=== PATIENT | female | born 1975 | race African-American/Black ===

== ENCOUNTER 2016-05-01 17:38 | Emergency (ER) | payer MEDICARE, OTHER ==
--- NOTE | 2016-05-01 18:06 | ED Physician Documentation ---
General Adult - HISTORIAN Historian: patient - HPI Stated Complaint: cough, nasal congestion, left ear pain, and sore throat Chief Complaint: Cough/ Upper Respiratory Onset: days ago (3) Timing: still present Modifying Factors: has been taking mucinex without improvement Further Comments: yes - ROS CONST: fever (felt hot), chills EYES/ENT: sore throat, nasal drainage, nasal congestion CVS/RESP: cough GI/: denies: vomiting, nausea, diarrhea - PAST HX Past History: other (seizure disorder, last one was 1 yr ago) Other History: other (boarderline diabetic) Surgeries/Procedures: BTL Immunizations: referred to PCP Allergies/Adverse Reactions: Allergies Allergy/AdvReac Type Severity Reaction Status Date / Time No Known Allergies Allergy Verified 05/01/16 18:01 Home Medications: Ambulatory Orders Medication Instructions Recorded Levetiracetam [Keppra] 1,500 mg PO BID 06/29/15 Multivitamin/Ferrous Sulfate 18 mg PO D 09/25/15 [One-Daily Xqhvm-Som-Dqtd Tab] Atorvastatin Calcium 20 mg PO HS 11/25/15 Levonorgestrel [Mirena] 1 each IY 1T 11/25/15 Azithromycin [Zithromax] 250 mg PO QD #6 tablet 05/01/16 Losartan Potassium [Cozaar] 50 mg PO DAILY 05/01/16 - SOCIAL HX Smoking History: non-smoker Alcohol Use: rarely Drug Use: none - FAMILY HX Family History: Yes - VITAL SIGNS Vital Signs: Vital Signs Temp Pulse Resp BP Pulse Ox 98.4 F 78 16 124/87 97 05/01/16 17:43 05/01/16 17:43 05/01/16 17:43 05/01/16 17:43 05/01/16 17:43 - REVIEWED ASSESSMENTS Nursing Assessment Reviewed: Yes Vitals Reviewed: Yes General Adult Physical Exam - PHYSICAL EXAM GENERAL APPEARANCE: no distress EENT: eye inspection normal, no signs of dehydration, pharyngeal erythema (mild) NECK: normal inspection, lymphadenopathy (mild tenderness) RESPIRATORY: no resp distress, chest non-tender, rhonchi. No: wheezes, rales CVS: reg rate & rhythm, heart sounds normal ABDOMEN: normal bowel sounds BACK: normal inspection SKIN: warm/dry EXTREMITIES: non-tender, normal range of motion NEURO: oriented X3, mood/affect nml, cognition normal Discharge Clincal Impression: Bronchitis Additional Instructions: Drink a lot of fluids, use some saline nasal spray to help with the nasal congestion, continue with mucinex for pulmonary congestion. Take Azithromycin as directed. If your breathing gets worse to follow-up wit your primary care provider or return to the ED. Home Medications: Ambulatory Orders Levetiracetam [Keppra] 1,500 mg PO BID 06/29/15 Multivitamin/Ferrous Sulfate [One-Daily Zgrsj-Fvw-Aava Tab] 18 mg PO D 09/25/15 Atorvastatin Calcium 20 mg PO HS 11/25/15 Levonorgestrel [Mirena] 1 each IY 1T 11/25/15 Azithromycin [Zithromax] 250 mg PO QD #6 tablet 05/01/16 Losartan Potassium [Cozaar] 50 mg PO DAILY 05/01/16 Decision to Admit: NO Date of Decison to Admit: 05/01/16 Decision Time: 18:19
[2016-05-01 19:01] VITALS: BP 148/70
== END 2016-05-01 18:30 ==
LOC: ED 17:38
DX: J20.9 Acute bronchitis, unspecified (principal)
CPT/HCPCS: 87070; 87880; 99282; 99283

== ENCOUNTER 2016-05-13 09:59 | Emergency (ER) | payer MEDICARE, OTHER ==
[2016-05-13 10:17] VITALS: BP 114/59
--- NOTE | 2016-05-13 10:47 | ED Physician Documentation ---
General Adult - HISTORIAN Historian: patient - HPI Stated Complaint: cough, congestion Chief Complaint: General Adult Onset: days ago Timing: still present Severity: moderate Further Comments: yes (Pt ois a 40 yo female who was seen here 05/01/16 and tx'd with Azithromycin for bronchitis. Pt states that she seemed to be getting better, but then got worse and now has facial pain, and a cough that keeps her awake at night. Pt has had chills, malaise.) - ROS CONST: chills, other (malaise) EYES/ENT: sore throat (2nd to coughing) CVS/RESP: cough GI/: none MS/SKIN/LYMPH: none NEURO/PSYCH: headache (mild) - PAST HX Past History: hypertension, other (HLD, seizures) Surgeries/Procedures: BTL Allergies/Adverse Reactions: Allergies Allergy/AdvReac Type Severity Reaction Status Date / Time No Known Allergies Allergy Verified 05/13/16 10:10 Home Medications: Ambulatory Orders Medication Instructions Recorded Levetiracetam [Keppra] 1,500 mg PO BID 06/29/15 Multivitamin/Ferrous Sulfate 18 mg PO D 09/25/15 [One-Daily Bcgdc-Eol-Bybt Tab] Atorvastatin Calcium 20 mg PO HS 11/25/15 Levonorgestrel [Mirena] 1 each IY 1T 11/25/15 Losartan Potassium [Cozaar] 50 mg PO DAILY 05/01/16 - SOCIAL HX Smoking History: quit greater than 1 year - FAMILY HX Family History: No - VITAL SIGNS Vital Signs: Vital Signs Temp Pulse Resp BP Pulse Ox 99.3 F 84 19 114/59 97 05/13/16 10:11 05/13/16 10:11 05/13/16 10:11 05/13/16 10:11 05/13/16 10:11 - REVIEWED ASSESSMENTS Nursing Assessment Reviewed: Yes Vitals Reviewed: Yes Progress - Progress Progress: Rapid strep - neg Influenza A - Pos Influenza B - neg Rx Tamiflu 75 mg po bid x 5 days Rx Robitussin AC 10 ml po q 4-6h prn, Disp:250 cc. Push fluids. ED Results Lab/Radiology - Orders Orders: ED Orders Category Date Time Status GRP A STREP SCREEN Stat Lab 05/13/16 Ordered INFLUENZA A&B Stat Lab 05/13/16 10:23 Ordered General Adult Physical Exam - PHYSICAL EXAM GENERAL APPEARANCE: mild distress EENT: eye inspection normal, ENT inspection normal, pharynx normal NECK: normal inspection, supple RESPIRATORY: no resp distress, chest non-tender, breath sounds normal, other ( cough) CVS: reg rate & rhythm, heart sounds normal ABDOMEN: soft, no organomegaly, normal bowel sounds BACK: normal inspection, no CVA tenderness SKIN: warm/dry, normal color EXTREMITIES: non-tender, normal range of motion, no evidence of injury NEURO: oriented X3, motor nml, sensation nml Discharge Clincal Impression: Influenza A Referrals: Primary Doctor,No [Primary Care Provider] - Home Medications: Ambulatory Orders Levetiracetam [Keppra] 1,500 mg PO BID 06/29/15 Multivitamin/Ferrous Sulfate [One-Daily Fkrjo-Jka-Rykp Tab] 18 mg PO D 09/25/15 Atorvastatin Calcium 20 mg PO HS 11/25/15 Levonorgestrel [Mirena] 1 each IY 1T 11/25/15 Losartan Potassium [Cozaar] 50 mg PO DAILY 05/01/16 Condition: Good Disposition: 01 HOME, SELF-CARE Decision to Admit: NO Decision Time: 10:52
== END 2016-05-13 10:51 | disposition home or self-care (01) ==
LOC: ED 09:59
DX: J11.1 Influenza due to unidentified influenza virus with other respiratory manifestations (principal)
CPT/HCPCS: 87070; 87400; 87880; 99283

== ENCOUNTER 2016-10-19 14:03 | Emergency (ER) | payer MEDICARE, OTHER ==
--- NOTE | 2016-10-19 14:20 | ED Physician Documentation ---
Nausea/Vomiting/Diarrhea - HISTORIAN Historian: patient - HPI Chief Complaint: Nausea,Vomiting,Diarrhea Onset: days ago (3 days) Duration: constant Last known Well Code/Unknown Code: Known Timing: still present Context: denies: out of country travel, bad food Severity: mild Further Comments: yes (patient states she is been having some nausea vomiting and diarrhea over the last three days. Patient does have a history of seizure disorder. Patient states that she get dehydrated sure tend to be more likely to have a seizure. Patient is concerned that she may be started to get dehydrated' s. Patient states that she is had recourse dominant today. Patient denies any medication melena her hematemesis. Patient has had some slight bright red blood with wiping related to her hemorrhoids. Patient is not had any vomiting today. Patient has been slightly nauseated. Patient has had decrease oral intake. Patient is still having adequate urinary output. Patient denies any lightheaded or dizzy spells or orthotic symptoms.) - Associated Symptoms Vomiting: mild Diarrhea: watery, bloody (hemorhoids with wiping) Abdominal Pain: cramping - ROS CONST: chills. denies: fever MS/SKIN/LYMPH: denies: joint pain, leg swelling NEURO/PSYCH: other (seizure disorder, last seizure was one year ago.) - PAST HX Past History: other (siezure disorder, HTN) Surgeries/Procedures: BLT Allergies/Adverse Reactions: Allergies Allergy/AdvReac Type Severity Reaction Status Date / Time No Known Allergies Allergy Verified 10/19/16 14:42 Home Medications: Ambulatory Orders Medication Instructions Recorded Levetiracetam [Keppra] 1,500 mg PO BID 06/29/15 Multivitamin/Ferrous Sulfate 18 mg PO D 09/25/15 [One-Daily Ghdty-Crh-Sbky Tab] Atorvastatin Calcium 20 mg PO HS 11/25/15 Levonorgestrel [Mirena] 1 each IY 1T 11/25/15 Losartan Potassium [Cozaar] 50 mg PO DAILY 05/01/16 - SOCIAL HX Smoking History: non-smoker Alcohol Use: rarely (wine) Drug Use: none - FAMILY HX Family History: diabetes (H), other (HTN) - VITAL SIGNS Vital Signs: Vital Signs Temp Pulse Resp BP Pulse Ox 73 20 135/69 99 10/19/16 16:45 10/19/16 16:45 10/19/16 16:45 10/19/16 16:45 - REVIEWED ASSESSMENTS Nursing Assessment Reviewed: Yes Vitals Reviewed: Yes ED Results Lab/Radiology - Lab Results Lab Results: Lab Results 10/19/16 10/19/16 15:05 15:05 WBC 8.80 K/ul K/ul (4.00-12.00) RBC 4.34 M/ul M/ul (3.90-5.20) Hgb 13.9 g/dL g/dL (12.0-16.0) Hct 40.4 % % (34.5-46.5) MCV 93.1 fl fl (80.0-100.0) MCH 32.0 pg pg (28.0-34.0) MCHC 34.4 g/dL g/dL (30.0-36.0) RDW 12.9 % % (11.3-14.3) Plt Count 241 K/mm3 K/mm3 (130-400) Neut % (Auto) 83.3 % H % (39.0-79.0) Lymph % (Auto) 10.9 % L % (16.0-50.0) [place] % (Auto) 2.7 % % (0.0-11.0) Eos % (Auto) 2.4 % % (0.0-6.8) Baso % (Auto) 0.3 (0.0-1.5) Neut # (Auto) 7.3 # k/uL # k/uL (1.4-7.7) Lymph # (Auto) 1.0 # k/uL # k/uL (0.6-4.0) [place] # (Auto) 0.2 # k/uL # k/uL (0.0-0.9) Eos # (Auto) 0.2 # k/uL # k/uL (0.0-0.6) Baso # (Auto) 0.0 # k/uL # k/uL (0.0-0.5) Reactive Lymphs % 0.4 % % (0.0-5.0) Reactive Lymphs # 0.0 # k/uL # k/uL (0.0-0.8) Sodium 136 mmol/L mmol/L (136-145) Potassium 3.9 mmol/L mmol/L (3.5-5.0) Chloride 100 mmol/L mmol/L (98-110) Carbon Dioxide 28 mmol/L mmol/L (20-32) BUN 12 mg/dL mg/dL (10-26) Creatinine 0.6 mg/dL mg/dL (0.4-1.5) Estimated Creat Clear 225 Est GFR ( Amer) > 60 (60 - ) Est GFR (Non-Af Amer) > 60 (60 - ) Glucose 125 mg/dL H mg/dL (70-99) Calcium 10.1 mg/dL mg/dL (8.5-10.5) Total Bilirubin 0.9 mg/dL mg/dL (0.2-1.2) AST 22 U/L U/L (0-41) ALT 28 U/L U/L (0-45) Alkaline Phosphatase 106 U/L U/L (46-116) Total Protein 8.4 g/dL g/dL (6.0-8.5) Albumin 5.0 g/dL g/dL (3.0-5.5) - Orders Orders: ED Orders Category Date Time Status Place IV Lock 1T Care 10/19/16 14:25 Active CBC/PLATELET/DIFF Routine Lab 10/19/16 15:05 Completed CMP Routine Lab 10/19/16 15:05 Completed LEVETIRACETAM(KEPPRA) LEVEL Routine Lab 10/19/16 15:05 Received 0.9 % Sodium Chloride [Normal Saline] 1,000 ml Med 10/19/16 14:30 Discontinued IV .Q1H 0.9 % Sodium Chloride [Normal Saline] 1,000 ml Med 10/19/16 14:46 Discontinued IV .STK-MED Nausea Physical Exam - EXAM General Appearance: no acute distress, alert Neck: normal inspection, thyroid normal, supple. No: lymphadenopathy Respiratory: no resp distress, chest non-tender, breath sounds normal. No: wheezes, rales, rhonchi CVS: reg rate & rhythm, heart sounds normal, equal pulses, no murmur, no gallop Abdomen: non-tender, no organomegaly, hepatomegaly. No: tenderness, guarding, rebound Skin: warm/dry, normal color Neuro/Psych: oriented X3, CN's nml as tested, mood/affect nml, cognition normal Discharge Clincal Impression: Nausea & vomiting, Diarrhea Referrals: Primary Doctor,No [Primary Care Provider] - 2 Days Additional Instructions: Drink a lot of fluids, make sure you watch your urine as discussed to make sure you are staying well hydrated. If you continue to have problems to see your primary care provider or return to the ED. Home Medications: Ambulatory Orders Levetiracetam [Keppra] 1,500 mg PO BID 06/29/15 Multivitamin/Ferrous Sulfate [One-Daily Hdrrz-Tpn-Ijqk Tab] 18 mg PO D 09/25/15 Atorvastatin Calcium 20 mg PO HS 11/25/15 Levonorgestrel [Mirena] 1 each IY 1T 11/25/15 Losartan Potassium [Cozaar] 50 mg PO DAILY 05/01/16 Condition: Stable Disposition: 01 HOME, SELF-CARE Decision to Admit: NO Date of Decison to Admit: 10/19/16 Decision Time: 16:37
[2016-10-19] MEDS ORDERED: 0.9 % SODIUM CHLORIDE 1,000 ML IV ONE (14:46)
[2016-10-19 15:10] LABS: BASOPHILS % 0.3 (0.0-1.5); EOSINOPHILS % 2.4 % (0.0-6.8); MEAN CORPUSCULAR VOLUME 93.1 fl (80.0-100.0); MONOCYTES % 2.7 % (0.0-11.0); NEUTROPHILS # 7.3 # k/uL (1.4-7.7)
[2016-10-19] MEDS: 0.9 % SODIUM CHLORIDE 1,000 ML IV SCH (15:15)
[2016-10-19 15:29] LABS: eGFR (African) > 60; eGFR (Non-African) > 60
[2016-10-19 17:26] VITALS: BP 135/69
== END 2016-10-19 16:45 | disposition home or self-care (01) ==
LOC: ED 14:03
DX: R11.2 Nausea with vomiting, unspecified (principal); R19.7 Diarrhea, unspecified
CPT/HCPCS: 80053; 80177; 85025; J7030; 96360; 99283; S1016

== ENCOUNTER 2017-01-11 20:33 | Emergency (ER) | payer MEDICARE, OTHER ==
[2017-01-11] MEDS ORDERED: TRIPLE ANTIBIOTIC OINTMENT PAC 1 PACKET TOP ONE (21:43)
--- NOTE | 2017-01-12 00:26 | ED Physician Documentation ---
Fall - HISTORIAN Historian: patient - HPI Stated Complaint: fall Chief Complaint: Fall Additional Information: scratched right hand palm and left knee Onset: just prior to arrival Where: home Context: tripped r: mild Associated Symptoms:: no loss of consciousness Location of Pain/Injury: upper extremity, lower extremity Injury to Right Extremity: hand Injury to Left Extremity: knee Further Comments: no - ROS CONST: no problems NEURO: denies: dizziness MS/SKIN/LYMPH: other (scratch right hand, abrasion left knee). denies: weakness , numbness, neck pain, back pain, ankle swelling, leg swelling, rash EYES/ENT: none CVS/RESP: none GI/: denies: problems urinating, nausea, vomiting - PAST HX Past History: other (seizure disorder, hyperlipidemia, htn) Immunizations: referred to PCP Allergies/Adverse Reactions: Allergies Allergy/AdvReac Type Severity Reaction Status Date / Time No Known Allergies Allergy Verified 10/19/16 14:42 Home Medications: Ambulatory Orders Medication Instructions Recorded Levetiracetam [Keppra] 1,500 mg PO BID 06/29/15 Multivitamin/Ferrous Sulfate 18 mg PO D 09/25/15 [One-Daily Oxzfy-Jzl-Vzwa Tab] Atorvastatin Calcium 20 mg PO HS 11/25/15 Levonorgestrel [Mirena] 1 each IY 1T 11/25/15 Losartan Potassium [Cozaar] 50 mg PO DAILY 05/01/16 - SOCIAL HX Smoking History: cigarettes Alcohol Use: none Drug Use: none - FAMILY HX Family History: no significant history - VITAL SIGNS Vital Signs: Vital Signs Temp Pulse Resp BP Pulse Ox 135/69 10/19/16 16:45 - REVIEWED ASSESSMENTS Nursing Assessment Reviewed: Yes Vitals Reviewed: Yes Progress - Results/Orders Results/Orders: no testing ordered - Progress Progress: pt's injuries cleaned with sure clens, celina and band aids Critical Care Note - Critical Care Note Total Time (mins): 0 ED Results Lab/Radiology - Lab Results Lab Results: none taken - Radiology Radiology Impressions: none taken - Orders Orders: ED Orders Category Date Time Status Triple Antibiotic Ointment Pac [Neosporin Packet] Med 01/11/17 21:43 Discontinued 1 packet TOP 1T ONE Fall Physical Exam - Physical Exam General Appearance: no acute distress, alert Head: non-tender, no swelling, no obvious injury Neck: non-tender, painless ROM, trachea midline Eye: KIZZY, EOMI, lids & conjunct. nml, EOM palsy, EOM entrapment ENT: nml external inspection, no dental injury, no oral injury, airway nml Resp/CVS: chest non-tender, no ecchymosis, breath sounds nml, no resp. distress , heart sounds nml Abdomen: soft, no organomegaly, normal bowel sounds, no abdominal bruit, no distension, non-tender Neuro: oriented x3, CN's nml as tested, sensation nml, motor nml, mood/affect nml, improvement intern nml, reflexes nml, improvement intern symmetrical Skin: other (4 cm very superficial, nnbleeding scratch right hand palm and 2 cm abrasion left knee) Back: normal inspection, no CVA tenderness, no vertebral tenderness Extremities: pelvis stable, hips non-tender, no pedal edema, nml ROM, nml color/ temp Joint: joints nml, nml ROM, Nml gait/weight bearing - Carie Coma Score Eyes Open: Spontaneous Speech: Oriented Motor: Obeys Commands Discharge Clincal Impression: scratch right hand Abrasion of left knee Qualifiers: Encounter type: initial encounter Qualified Code(s): S80.212A - Abrasion, left knee, initial encounter Referrals: Primary Doctor,No [Primary Care Provider] - 2 Days Comments: Discharged in stable condition with recommendation to clean and bandage scratch/ abrasion daily. Condition: Stable Disposition: 01 HOME, SELF-CARE Decision to Admit: NO Decision Time: 21:45
[2017-01-13 03:53] VITALS: BP 141/70
== END 2017-01-11 21:45 | disposition home or self-care (01) ==
LOC: ED 20:33
DX: S80.212A Abrasion, left knee, initial encounter (principal); S60.511A Abrasion of right hand, initial encounter; W19.XXXA Unspecified fall, initial encounter; Y93.9 Activity, unspecified; Y99.9 Unspecified external cause status
CPT/HCPCS: 99283

== ENCOUNTER 2017-09-18 13:36 | Outpatient (CLI) | payer MEDICARE, OTHER ==
[2017-01-13 03:53] VITALS: BP 141/70
== END 2017-09-18 13:38 ==
LOC: LAB 13:36
PROVIDERS: ATTEND Psychiatry & Neurology Neurology
DX: G40.219 Localization-related (focal) (partial) symptomatic epilepsy and epileptic syndromes with complex partial seizures, intractable, without status epilepticus (principal)
CPT/HCPCS: 36415; 80177

== ENCOUNTER 2017-10-27 06:00 | Emergency (ER) | payer OTHER, MEDICARE ==
--- NOTE | 2017-10-27 06:28 | ED Physician Documentation ---
Sore Throat/Dental Pain - HISTORIAN Historian: patient, spouse - HPI Stated Complaint: 100.2 Chief Complaint: Sore Throat Additional Information: sore throat onset 2 d ago fever chills Context: denies: Abscess Associated Symptoms: fever, chills, sore throat, mild, moderate, L ear pain, cough, swollen glands. denies: runny nose, congestion, R ear pain Further Comments: yes (pt has had few strept throats before) - ROS CONST: other (ache) CVS/RESP: denies: chest pain, shortness of breath, palpitations GI/: denies: problems urinating, nausea, vomiting MS/SKIN/LYMPH: denies: muscle aches, rash, leg swelling NEURO/PSYCH: none - PAST HX Past History: other (seizure pre diabetic2 htn) Other History: none Allergies/Adverse Reactions: Allergies Allergy/AdvReac Type Severity Reaction Status Date / Time oxycodone HCl [From Percocet] Allergy Severe Anaphylaxis Verified 10/27/17 06:18 Home Medications: Ambulatory Orders Medication Instructions Recorded Levetiracetam [Keppra] 1,500 mg PO BID 06/29/15 Multivitamin/Ferrous Sulfate 18 mg PO D 09/25/15 [One-Daily Jxzsf-Jxi-Wuvr Tab] Atorvastatin Calcium 20 mg PO HS 11/25/15 Levonorgestrel [Mirena] 1 each IY 1T 11/25/15 Losartan Potassium [Cozaar] 50 mg PO DAILY 05/01/16 - SOCIAL HX Smoking History: non-smoker Alcohol Use: none Drug Use: none - FAMILY HX Family History: Yes - VITAL SIGNS Vital Signs: Vital Signs Temp Pulse Resp BP Pulse Ox 100.2 F H 91 H 20 117/49 97 10/27/17 06:13 10/27/17 06:13 10/27/17 06:13 10/27/17 06:13 10/27/17 06:13 - REVIEWED ASSESSMENTS Nursing Assessment Reviewed: Yes Vitals Reviewed: Yes Sore throat Physical Exam - EXAM General Appearance: mild distress Head/Neck: head nml inspection, trachea midline, no lymphadenopathy, cervical lymphadenopathy, anterior. No: thyroid nml, pain over sinuses, mandibular swelling (R), posterior Eyes: eyes nml inspection Mouth/Throat: lips nml, gums nml. No: pharynx nml (red but not like strept), other Ear/Nose: nml inspection. No: TM erythema Respiratory: no resp. distress, breath sounds nml, decreased air entry. No: respiratory distress CVS: reg. rate & rhythm. No: tachycardia Abdomen: soft, non-tender Extremities: non-tender, nml ROM Skin: warm/dry, normal color Neuro/Psych: oriented x3, mood/affect nml. No: disoriented Discharge Clincal Impression: non strept sore throat-viral Referrals: Primary Doctor,No [Primary Care Provider] - 2 Days Comments: home good healthcare Condition: Good Disposition: 01 HOME, SELF-CARE Decision to Admit: NO Decision Time: 06:31
[2017-10-27 06:31] VITALS: BP 117/49
== END 2017-10-27 06:40 | disposition home or self-care (01) ==
LOC: ED 06:00
DX: B34.9 Viral infection, unspecified (principal)
CPT/HCPCS: 87070; 87880; 99283

== ENCOUNTER 2017-11-14 10:22 | Outpatient (CLI) | payer OTHER, MEDICARE | END 2017-11-14 10:23 | LOC: LAB 10:22 | PROVIDERS: ATTEND Family Medicine | DX: E11.9 Type 2 diabetes mellitus without complications (principal) | CPT/HCPCS: 36415; 83036 ==

== ENCOUNTER 2018-05-27 11:43 | Emergency (ER) | payer MEDICARE, OTHER ==
[2018-05-27 12:04] VITALS: BP 150/91
--- NOTE | 2018-05-27 12:15 | ED Physician Documentation ---
Upper Respiratory Symptoms - HISTORIAN Historian: patient - HPI Stated Complaint: Congestion Chief Complaint: Cough/ Upper Respiratory Additional Information: Patient presents to ED with a 6 day history of cough, nasal congestion. Today she began to have chills and bodyaches. Onset: days ago (6) Duration: constant Context: denies: recent foreign travel Severity: moderate Associated Symptoms: chills, runny nose, sinus pain, sinus drainage, sore throat, productive cough. denies: shortness of breath - ROS CONST/EYES: weakness CVS/RESP: none LYMPH: denies: leg swelling GI/: none NEURO/PSYCH: denies: dizziness MS/SKIN: muscle aches - PAST HX Lung Disease: none PE Risk Factors: none Other History: diabetes Type 2 Surgeries/Procedures: none Allergies/Adverse Reactions: Allergies Allergy/AdvReac Type Severity Reaction Status Date / Time oxycodone HCl [From Percocet] Allergy Severe Anaphylaxis Verified 05/27/18 12:04 Home Medications: Ambulatory Orders Medication Instructions Recorded Atorvastatin Calcium 20 mg PO HS 11/25/15 Levonorgestrel [Mirena] 1 each IY 1T 11/25/15 Amoxicillin/Potassium Clav 1 each PO BID #14 tablet 05/27/18 [Augmentin 875-125 Tablet] Aspirin [Loretta] 1 tab PO DAILY 05/27/18 Levetiracetam [Keppra] 1 tab PO BID 05/27/18 Losartan Potassium [Cozaar] 1 tab PO DAILY 05/27/18 Sitagliptin Phosphate [Januvia] 1 tab PO DAILY 05/27/18 predniSONE [Deltasone] 20 mg PO DIRECTED #9 tablet 05/27/18 - SOCIAL HX Smoking History: non-smoker Alcohol Use: none Drug Use: none - FAMILY HX Family History: none - VITAL SIGNS Vital Signs: Vital Signs Temp Pulse Resp BP Pulse Ox 98.2 F 84 15 150/91 98 05/27/18 11:50 05/27/18 11:50 05/27/18 11:50 05/27/18 11:50 05/27/18 11:50 - REVIEWED ASSESSMENTS Nursing Assessment Reviewed: Yes Vitals Reviewed: Yes Upper Respiratory Symptoms - EXAM General Appearance: no acute distress, alert EENT: eyes nml inspection, nml ENT inspection, rhinorrhea, purulent nasal drainage, pharyngeal erythema Neck: supple Respiratory: no resp. distress, breath sounds nml Abdomen: non-tender, nml bowel sounds CVS: reg rate & rhythm, heart sounds normal Skin: color nml, no rash, warm,dry Extremities: non-tender, no edema Neuro/Psych: oriented x3 Discharge Clincal Impression: Upper respiratory infection Qualifiers: URI type: unspecified URI Qualified Code(s): J06.9 - Acute upper respiratory infection, unspecified Prescriptions: Amoxicillin/Potassium Clav [Augmentin 875-125 Tablet] 1 each PO BID #14 tablet predniSONE [Deltasone] 20 mg PO DIRECTED #9 tablet Referrals: Primary Doctor,No [Primary Care Provider] - 2 Days Additional Instructions: 1. Take antibiotics as directed 2. Add Mucinex daily until antibiotics are complete 3. Cool mist vaporizer with sleep 4. Sinus irrigation may be helpful 5. Follow up with PCP within 1 week 6. Return to ER for new or worsening symptoms. Condition: Stable Disposition: 01 HOME, SELF-CARE Decision to Admit: NO Date of Decison to Admit: 05/27/18 Decision Time: 12:20
== END 2018-05-27 12:30 | disposition home or self-care (01) ==
LOC: ED 11:43
DX: J06.9 Acute upper respiratory infection, unspecified (principal)
CPT/HCPCS: 99282; 99283

== ENCOUNTER 2018-07-15 05:50 | Emergency (ER) | payer OTHER ==
[2018-07-15 06:19] VITALS: BP 124/75
--- NOTE | 2018-07-15 06:25 | ED Physician Documentation ---
General Adult - HPI Stated Complaint: cough ? swelling of uvula Chief Complaint: General Adult Additional Information: Patient presents to ED after waking up the morning choking. Patient reports she had dental xrays yesterday. This morning when she woke up she felt like she had something stuck in her throat. She got up and put her finger down her throat to try to get it out causing her to gag and wet her pants. After that she noticed she coughed up blood tinged spit. Onset: minutes (20) Timing: still present Severity: mild - ROS CONST: denies: fever EYES/ENT: sore throat CVS/RESP: none GI/: none MS/SKIN/LYMPH: none NEURO/PSYCH: denies: headache - PAST HX Past History: none Other History: seizure disorder Surgeries/Procedures: none Allergies/Adverse Reactions: Allergies Allergy/AdvReac Type Severity Reaction Status Date / Time oxycodone HCl [From Percocet] Allergy Severe Anaphylaxis Verified 07/15/18 06:03 Home Medications: Ambulatory Orders Medication Instructions Recorded Atorvastatin Calcium 20 mg PO HS 11/25/15 Levonorgestrel [Mirena] 1 each IY 1T 11/25/15 Aspirin [Loretta] 1 tab PO DAILY 05/27/18 Levetiracetam [Keppra] 1 tab PO BID 05/27/18 Losartan Potassium [Cozaar] 1 tab PO DAILY 05/27/18 Sitagliptin Phosphate [Januvia] 1 tab PO DAILY 05/27/18 Clindamycin HCl 300 mg PO TID #30 capsule 07/15/18 predniSONE [Deltasone] 20 mg PO DIRECTED #6 tablet 07/15/18 - SOCIAL HX Smoking History: non-smoker Alcohol Use: none Drug Use: none - FAMILY HX Family History: No - VITAL SIGNS Vital Signs: Vital Signs Temp Pulse Resp BP Pulse Ox 98.5 F 86 18 124/75 97 07/15/18 05:51 07/15/18 05:51 07/15/18 05:51 07/15/18 05:51 07/15/18 05:51 - REVIEWED ASSESSMENTS Nursing Assessment Reviewed: Yes Vitals Reviewed: Yes ED Results Lab/Radiology - Orders Orders: ED Orders Category Date Time Status Lidocaine 1% 5ml [Xylocaine] Med 07/15/18 06:21 Once 50 mg IJ NOW ONE cefTRIAXone SODIUM [Rocephin] Med 07/15/18 06:21 Once 1 gm IM NOW ONE methylPREDNISolone SOD SUCC [Solu-MEDROL] Med 07/15/18 06:21 Once 125 mg IM NOW ONE General Adult Physical Exam - PHYSICAL EXAM GENERAL APPEARANCE: no distress EENT: no signs of dehydration, KIZZY, other (erythematous/edema uvula) NECK: supple RESPIRATORY: no resp distress, breath sounds normal CVS: reg rate & rhythm ABDOMEN: soft, normal bowel sounds BACK: normal inspection SKIN: warm/dry EXTREMITIES: non-tender, normal range of motion, no evidence of injury NEURO: oriented X3 Discharge Clincal Impression: Uvulitis Prescriptions: Clindamycin HCl 300 mg PO TID #30 capsule predniSONE [Deltasone] 20 mg PO DIRECTED #6 tablet Referrals: Zunilda Ponce MD [Primary Care Provider] - 2 Days Additional Instructions: 1. Take antibiotics until gone 2. Start Prednisone tomorrow 3. Follow up with PCP within 1 week 4. Return to ER for new or worsening symptoms Condition: Stable Disposition: 01 HOME, SELF-CARE Decision to Admit: NO Date of Decison to Admit: 07/15/18 Decision Time: 06:42
[2018-07-15] MEDS: cefTRIAXone SODIUM 1 GM INJ IM ONE (06:37)
[2018-07-15] MEDS: methylPREDNISolone SOD SUCC 125 MG/2 ML VIAL IM ONE (06:37)
[2018-07-15] MEDS: Lidocaine 1% 5ml 10 MG/ML VIAL IJ ONE (06:37)
== END 2018-07-15 06:46 | disposition home or self-care (01) ==
LOC: ED 05:50
DX: K12.2 Cellulitis and abscess of mouth (principal)
CPT/HCPCS: 96372; 99283; J0696; J2930